=== PATIENT | male | born 1970 | race Caucasian/White ===

== ENCOUNTER 2018-01-01 05:50 | Emergency (ER) | payer SELFPAY ==
[~2018-01-01] VITALS: Ht 177.8 cm; Wt 86.2 kg
[~2018-01-01 05:50] MED LIST: ASPIRIN81 M1 PO; ATARAX,VISTARIL50 MG PO; HYDRODIURIL25 MG PO; KEFLEX500 MG PO; LEVAQUIN750 M1 PO; LISINOPRIL2.5 MG PO; LISINOPRIL20 MG PO; METOPROL; METOPROLOL SR25 MG PO; NAPROSYN500 MG PO; NORCO 325 MG-51 TAB PO; PANTOPRAZOLE SO40 MG PO; PREDNISONE10 MG PO; SIMVASTATIN20 MG PO; ZOFRAN ODT4 MG PO
[2018-01-01] MEDS ORDERED: Motrin,Rufen800 MG PO (07:35)
[2018-01-01] MEDS ORDERED: NORCO 5-325 TA1 EACH PO (07:35)
== END 2018-01-01 09:59 | disposition home or self-care (01) ==
LOC: ED 05:50
DX: S22.32XA Fracture of one rib, left side, initial encounter for closed fracture (principal); I10 Essential (primary) hypertension; J44.9 Chronic obstructive pulmonary disease, unspecified; E66.3 Overweight; F17.200 Nicotine dependence, unspecified, uncomplicated; Z68.31 Body mass index [BMI] 31.0-31.9, adult; Z79.899 Other long term (current) drug therapy; W20.8XXA Other cause of strike by thrown, projected or falling object, initial encounter; Y93.72 Activity, wrestling; Y92.89 Other specified places as the place of occurrence of the external cause; Y99.8 Other external cause status

== ENCOUNTER 2018-08-26 19:23 | Emergency (ER) | payer SELFPAY ==
[~2018-08-26] VITALS: Ht 177.8 cm; Wt 93.0 kg
[~2018-08-26 19:23] MED LIST changes: +CIPRO500 MG PO; +FLAGYL500 MG PO; +Motrin,Rufen800 MG PO; +NICODERM CQ1 EAC2 T; +NORCO 5-325 TA1 EACH PO; +ZESTORETIC 20-1 EACH PO
[2018-08-26 20:47] LABS: BILIRUBIN NEGATIVE (NEGATIVE); BLOOD TRACE-INTACT (NEGATIVE); CLARITY CLEAR (CLEAR); COLOR YELLOW (YELLOW); GLUCOSE NEGATIVE (NEGATIVE); KETONE NEGATIVE (NEGATIVE); LEUKO ESTERASE NEGATIVE (NEGATIVE); NITRITE NEGATIVE (NEGATIVE); SPECIFIC GRAVITY 1.025 (1.005-1.030); UROBILINOGEN 0.2 E.U./dl (0.2-1.0)
[2018-08-26 20:59] LABS: EPITHELIAL CELLS 0-2; WBC 0-2 wbc/hpf (0-5)
== END 2018-08-26 21:35 | disposition home or self-care (01) ==
LOC: ED 19:23
PROVIDERS: Physician Assistant
DX: S22.42XA Multiple fractures of ribs, left side, initial encounter for closed fracture (principal); R31.9 Hematuria, unspecified; R10.9 Unspecified abdominal pain; F17.200 Nicotine dependence, unspecified, uncomplicated; Z79.899 Other long term (current) drug therapy; W00.1XXA Fall from stairs and steps due to ice and snow, initial encounter; Y93.89 Activity, other specified; Y92.89 Other specified places as the place of occurrence of the external cause; Y99.8 Other external cause status

== ENCOUNTER 2018-10-22 18:53 | Emergency (ER) | payer BC ==
[~2018-10-22] VITALS: Wt 95.3 kg
--- NOTE | ~2018-10-22 | EKG ---
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
[2018-10-22 20:08] LABS: BASO % 0.4 % (0.0-1.0); EOS # 0.3 10*3/uL (0.0-0.4); EOS % 3.4 % (1.0-4.0); HEMATOCRIT 49.4 % (42.0-52.0); HEMOGLOBIN 17.8 g/dl (14.0-18.0); LYMPH # 1.9 10*3/uL (1.3-4.4); LYMPH % 23.9 % (27.0-41.0); MEAN CELL VOLUME 91.3 fl (80.0-94.0); MEAN CORPUSCULAR HGB 32.9 pg (27.0-31.0); MEAN PLATELET VOLUME 9.4 fl (9.6-12.3); MONO # 0.8 10*3/uL (0.1-1.0); MONO % 9.6 % (3.0-9.0); NEUT # 4.9 10*3/uL (2.3-7.9); NEUT % 62.4 % (47.0-73.0); PLATELET COUNT AUTOMATED 314 10*3/uL (130-400); RED BLOOD COUNT 5.41 10*6/uL (4.50-5.90); RED CELL DISTRI WIDTH 11.9 % (0-14.5); WHITE BLOOD COUNT 7.9 10*3/uL (4.8-10.8)
[2018-10-22 20:28] LABS: ACT PARTIAL THROMBO TIME 25.7 SECONDS (20.8-31.5); INTERNATIONAL NORM RATIO 0.9 (2.0-3.5)
[2018-10-22 20:31] LABS: ALBUMIN 4.1 gm/dl (3.1-4.5); ALKALINE PHOSPHATASE 98 U/L (45-117); BUN 15 mg/dl (7-24); CHLORIDE 99 mmol/L (98-107); SGOT/AST 48 IU/L (3-35); SGPT/ALT 70 U/L (12-78); SODIUM 134 mmol/L (136-145); TOTAL PROTEIN 9.3 gm/dL (6.4-8.2)
[2018-10-22 20:32] LABS: TROPONIN I < 0.015 ng/ml (<0.045)
[2018-10-22] MEDS ORDERED: PROAIR HFA8.5 GM INH (21:00)
== END 2018-10-22 21:06 | disposition home or self-care (01) ==
LOC: ED 18:53
PROVIDERS: Physician Assistant
DX: R00.0 Tachycardia, unspecified (principal); R94.6 Abnormal results of thyroid function studies; R05 Cough; R79.1 Abnormal coagulation profile; I10 Essential (primary) hypertension; F17.200 Nicotine dependence, unspecified, uncomplicated; Z79.899 Other long term (current) drug therapy

== ENCOUNTER 2019-01-20 07:40 | Inpatient (IN) | payer BC ==
[~2019-01-20] VITALS: Ht 177.8 cm; Wt 95.5 kg
[~2019-01-20 07:40] MED LIST changes: +PROAIR HFA8.5 GM INH
[2019-01-20 07:41] VITALS: BP 142/90
[2019-01-20] MEDS ORDERED: HYDROCHLOROTHIA25 M1 PO (07:44)
[2019-01-20] MEDS ORDERED: LOSARTAN POTASS50 M1 PO (07:44)
[2019-01-20 08:31] LABS: BASO % 0.2 % (0.0-1.0); EOS # 0.2 10*3/uL (0.0-0.4); EOS % 1.5 % (1.0-4.0); HEMATOCRIT 45.7 % (42.0-52.0); HEMOGLOBIN 16.4 g/dl (14.0-18.0); LYMPH # 1.2 10*3/uL (1.3-4.4); LYMPH % 11.8 % (27.0-41.0); MEAN CELL VOLUME 93.6 fl (80.0-94.0); MEAN CORPUSCULAR HGB 33.6 pg (27.0-31.0); MEAN CORPUSCULAR HGB CONC 35.9 g/dl (33.0-37.0); MEAN PLATELET VOLUME 9.2 fl (9.6-12.3); MONO # 0.8 10*3/uL (0.1-1.0); MONO % 8.3 % (3.0-9.0); NEUT # 7.7 10*3/uL (2.3-7.9); NEUT % 77.6 % (47.0-73.0); PLATELET COUNT AUTOMATED 276 10*3/uL (130-400); RED BLOOD COUNT 4.88 10*6/uL (4.50-5.90); RED CELL DISTRI WIDTH 12.1 % (0-14.5); WHITE BLOOD COUNT 9.9 10*3/uL (4.8-10.8)
[2019-01-20 08:52] LABS: ALBUMIN 3.5 gm/dl (3.1-4.5); ALKALINE PHOSPHATASE 102 U/L (45-117); BUN 9 mg/dl (7-24); CHLORIDE 95 mmol/L (98-107); CREATININE 0.71 mg/dL (0.70-1.30); POTASSIUM 4.3 mmol/L (3.5-5.1); SGOT/AST 26 IU/L (3-35); SGPT/ALT 44 U/L (12-78); SODIUM 130 mmol/L (136-145); TOTAL PROTEIN 8.2 gm/dL (6.4-8.2)
[2019-01-20 09:26] LABS: BILIRUBIN NEGATIVE (NEGATIVE); BLOOD NEGATIVE (NEGATIVE); CLARITY CLEAR (CLEAR); COLOR YELLOW (YELLOW); GLUCOSE NEGATIVE (NEGATIVE); KETONE NEGATIVE (NEGATIVE); LEUKO ESTERASE NEGATIVE (NEGATIVE); NITRITE NEGATIVE (NEGATIVE); SPECIFIC GRAVITY <= 1.005 (1.005-1.030); UROBILINOGEN 0.2 E.U./dl (0.2-1.0)
[2019-01-20 09:37] LABS: RBC 0-2 rbc/hpf (0-2); WBC 0-2 wbc/hpf (0-5)
[2019-01-20 10:00] VITALS: BP 144/78
[2019-01-20 11:50] LABS: INTERNATIONAL NORM RATIO 0.9 (2.0-3.5)
[2019-01-20 14:00] VITALS: BP 121/91
[2019-01-20 20:00] VITALS: BP 150/94
[2019-01-21] VITALS: BP 130/89
[2019-01-21 06:49] LABS: BASO % 0.4 % (0.0-1.0); EOS # 0.1 10*3/uL (0.0-0.4); EOS % 1.8 % (1.0-4.0); HEMATOCRIT 44.5 % (42.0-52.0); HEMOGLOBIN 15.4 g/dl (14.0-18.0); LYMPH % 14.8 % (27.0-41.0); MEAN CELL VOLUME 97.2 fl (80.0-94.0); MEAN CORPUSCULAR HGB 33.6 pg (27.0-31.0); MEAN CORPUSCULAR HGB CONC 34.6 g/dl (33.0-37.0); MEAN PLATELET VOLUME 9.4 fl (9.6-12.3); MONO # 0.7 10*3/uL (0.1-1.0); MONO % 9.5 % (3.0-9.0); NEUT # 5.1 10*3/uL (2.3-7.9); NEUT % 72.9 % (47.0-73.0); PLATELET COUNT AUTOMATED 267 10*3/uL (130-400); RED BLOOD COUNT 4.58 10*6/uL (4.50-5.90); RED CELL DISTRI WIDTH 12.4 % (0-14.5)
[2019-01-21 07:08] LABS: ALBUMIN 3.4 gm/dl (3.1-4.5); ALKALINE PHOSPHATASE 93 U/L (45-117); CHLORIDE 99 mmol/L (98-107); POTASSIUM 4.2 mmol/L (3.5-5.1); SODIUM 133 mmol/L (136-145)
[2019-01-21 07:14] LABS: BUN 7 mg/dl (7-24); CHOLESTEROL 182 mg/dL (<200); FREE T4 0.94 ng/dl (0.76-1.46); HDL CHOLESTEROL 50 mg/dl (40-60); LDL CHOLESTEROL 103 mg/dL (9-159); SGOT/AST 23 IU/L (3-35); SGPT/ALT 36 U/L (12-78); TOTAL PROTEIN 7.7 gm/dL (6.4-8.2); TRIGLYCERIDES 147 mg/dl (<150); VLDL CHOLESTEROL 29 mg/dL (6-40)
[2019-01-21 08:00] VITALS: BP 132/78; BP 138/97
[2019-01-21 08:48] LABS: VITAMIN D, 25-HYDROXY 26.4 ng/mL (30-100)
[2019-01-21 12:00] VITALS: BP 136/86
[2019-01-21 16:00] VITALS: BP 137/85
[2019-01-21 20:00] VITALS: BP 133/72
[2019-01-22] VITALS: BP 129/89
[2019-01-22 07:47] VITALS: BP 129/83
[2019-01-22 07:49] VITALS: BP 115/80; BP 116/80
[2019-01-22 12:00] VITALS: BP 122/76
[2019-01-22] MEDS ORDERED: CIPROFLOXACIN750 MG PO (13:16)
[2019-01-22] MEDS ORDERED: FLAGYL500 MG PO (13:16)
== END 2019-01-22 13:30 | disposition home or self-care (01) | DRG 392 ==
LOC: ED 07:40 → 5E 11:21 → EDHOLD 11:21 → 5E 13:10
PROVIDERS: Internal Medicine; Registered Nurse; ADMIT Internal Medicine
DX: K57.32 Diverticulitis of large intestine without perforation or abscess without bleeding (principal); E44.0 Moderate protein-calorie malnutrition; E87.1 Hypo-osmolality and hyponatremia; I10 Essential (primary) hypertension; F17.210 Nicotine dependence, cigarettes, uncomplicated; F10.10 Alcohol abuse, uncomplicated; Z83.3 Family history of diabetes mellitus; Z82.49 Family history of ischemic heart disease and other diseases of the circulatory system; Z79.899 Other long term (current) drug therapy; Z68.30 Body mass index [BMI] 30.0-30.9, adult

== ENCOUNTER 2020-03-17 12:55 | Emergency (ER) | payer SELFPAY ==
[~2020-03-17] VITALS: Wt 95.3 kg
[~2020-03-17 12:55] MED LIST changes: +CIPROFLOXACIN750 MG PO; +HYDROCHLOROTHIA25 M1 PO; +LOSARTAN POTASS50 M1 PO
[2020-03-17 13:20] LABS: BASO % 0.4 % (0.0-1.0); EOS # 0.3 10*3/uL (0.0-0.4); EOS % 2.6 % (1.0-4.0); HEMATOCRIT 46.3 % (42.0-52.0); LYMPH % 31.5 % (27.0-41.0); MEAN CELL VOLUME 97.9 fl (80.0-94.0); MEAN CORPUSCULAR HGB 34.5 pg (27.0-31.0); MEAN CORPUSCULAR HGB CONC 35.2 g/dl (33.0-37.0); MONO % 10.1 % (3.0-9.0); NEUT # 5.2 10*3/uL (2.3-7.9); NEUT % 55.1 % (47.0-73.0); PLATELET COUNT AUTOMATED 261 10*3/uL (130-400); RED BLOOD COUNT 4.73 10*6/uL (4.50-5.90); RED CELL DISTRI WIDTH 11.7 % (0-14.5); WHITE BLOOD COUNT 9.5 10*3/uL (4.8-10.8)
[2020-03-17 13:30] LABS: ACT PARTIAL THROMBO TIME 29.3 SECONDS (20.0-32.1); INTERNATIONAL NORM RATIO 0.9 (2.0-3.5)
[2020-03-17 13:41] LABS: ALBUMIN 3.7 gm/dl (3.1-4.5); ALKALINE PHOSPHATASE 135 U/L (45-117); BUN 8 mg/dl (7-24); CHLORIDE 92 mmol/L (98-107); CREATININE 0.74 mg/dL (0.70-1.30); POTASSIUM 3.9 mmol/L (3.5-5.1); SGOT/AST 134 IU/L (3-35); SGPT/ALT 125 U/L (12-78); SODIUM 124 mmol/L (136-145); TOTAL PROTEIN 8.6 gm/dL (6.4-8.2)
[2020-03-17 13:42] LABS: TROPONIN I < 0.015 ng/ml (<0.045)
[2020-03-17 14:23] VITALS: BP 155/95
--- NOTE | 2020-03-17 15:17 | NUR ---
PARENTS HERE TO TAKE PT AMA. EXPLAINED TO THEM HE CANNOT SIGN HIMSELF OUT BECAUSE HE IS CURRENTLY INTOXICATED.
== END 2020-03-17 14:58 | disposition left against medical advice (07) ==
LOC: ED 12:55 → EDHOLD 14:23 → ED 14:23
PROVIDERS: Emergency Medicine
DX: S01.01XA Laceration without foreign body of scalp, initial encounter (principal); K70.10 Alcoholic hepatitis without ascites; F10.129 Alcohol abuse with intoxication, unspecified; R55 Syncope and collapse; E87.1 Hypo-osmolality and hyponatremia; F17.210 Nicotine dependence, cigarettes, uncomplicated; Z79.899 Other long term (current) drug therapy; Y90.9 Presence of alcohol in blood, level not specified; W18.39XA Other fall on same level, initial encounter; Y93.89 Activity, other specified; Y92.89 Other specified places as the place of occurrence of the external cause; Y99.8 Other external cause status

== ENCOUNTER 2020-10-13 18:56 | Emergency (ER) | payer SELFPAY ==
[~2020-10-13] VITALS: Wt 95.7 kg
[2020-10-13 19:41] LABS: BASO % 0.7 % (0.0-1.0); EOS # 0.3 10*3/uL (0.0-0.4); EOS % 5.7 % (1.0-4.0); HEMATOCRIT 41.7 % (42.0-52.0); LYMPH # 1.8 10*3/uL (1.3-4.4); LYMPH % 31.5 % (27.0-41.0); MEAN CELL VOLUME 95.4 fl (80.0-94.0); MEAN CORPUSCULAR HGB 34.1 pg (27.0-31.0); MEAN CORPUSCULAR HGB CONC 35.7 g/dl (33.0-37.0); MEAN PLATELET VOLUME 9.1 fl (9.6-12.3); MONO # 0.5 10*3/uL (0.1-1.0); MONO % 9.1 % (3.0-9.0); NEUT # 3.1 10*3/uL (2.3-7.9); NEUT % 52.8 % (47.0-73.0); PLATELET COUNT AUTOMATED 207 10*3/uL (130-400); RED BLOOD COUNT 4.37 10*6/uL (4.50-5.90); RED CELL DISTRI WIDTH 11.9 % (0-14.5); WHITE BLOOD COUNT 5.8 10*3/uL (4.8-10.8)
[2020-10-13 19:57] LABS: ALBUMIN 3.3 gm/dl (3.1-4.5); ALKALINE PHOSPHATASE 129 U/L (45-117); BUN 4 mg/dl (7-24); CHLORIDE 94 mmol/L (98-107); CREATININE 0.71 mg/dL (0.70-1.30); POTASSIUM 3.4 mmol/L (3.5-5.1); SGOT/AST 154 IU/L (3-35); SGPT/ALT 124 U/L (12-78); SODIUM 126 mmol/L (136-145); TOTAL PROTEIN 8.2 gm/dL (6.4-8.2)
[2020-10-13 19:58] LABS: TROPONIN I < 0.015 ng/ml (<0.045)
== END 2020-10-13 21:37 | disposition short-term general hospital (02) ==
LOC: ED 18:56
PROVIDERS: Emergency Medicine
DX: S06.5X9A Traumatic subdural hemorrhage with loss of consciousness of unspecified duration, initial encounter (principal); I10 Essential (primary) hypertension; F17.200 Nicotine dependence, unspecified, uncomplicated; Z79.899 Other long term (current) drug therapy; X58.XXXA Exposure to other specified factors, initial encounter; Y93.89 Activity, other specified; Y92.89 Other specified places as the place of occurrence of the external cause; Y99.8 Other external cause status

== ENCOUNTER 2023-02-04 07:43 | Emergency (ER) | payer SELFPAY ==
[~2023-02-04] VITALS: Ht 177.8 cm; Wt 83.9 kg
[2023-02-04 08:15] LABS: BASO % 0.3 % (0.0-1.0); EOS # 0.1 10*3/uL (0.0-0.4); EOS % 0.6 % (1.0-4.0); HEMATOCRIT 43.4 % (42.0-52.0); LYMPH # 0.8 10*3/uL (1.3-4.4); LYMPH % 10.7 % (27.0-41.0); MEAN CELL VOLUME 94.6 fl (80.0-94.0); MEAN CORPUSCULAR HGB 34.4 pg (27.0-31.0); MEAN CORPUSCULAR HGB CONC 36.4 g/dl (33.0-37.0); MEAN PLATELET VOLUME 9.3 fl (9.6-12.3); MONO # 0.7 10*3/uL (0.1-1.0); MONO % 9.2 % (3.0-9.0); NEUT # 6.1 10*3/uL (2.3-7.9); NEUT % 78.9 % (47.0-73.0); PLATELET COUNT AUTOMATED 229 10*3/uL (130-400); RED BLOOD COUNT 4.59 10*6/uL (4.50-5.90); RED CELL DISTRI WIDTH 12.2 % (0-14.5); WHITE BLOOD COUNT 7.7 10*3/uL (4.8-10.8)
[2023-02-04 08:32] LABS: ACT PARTIAL THROMBO TIME 29.8 SECONDS (20.0-32.1)
[2023-02-04 09:15] LABS: ALKALINE PHOSPHATASE 396 U/L (46-116); BUN 6 mg/dl (9-23); CHLORIDE 97 mmol/L (98-107); LIPASE 42 U/L (12-53); SGPT/ALT 112 U/L (10-49); TOTAL PROTEIN 8.4 gm/dL (6.0-8.0)
[2023-02-04] MEDS ORDERED: AMOX-CLAV 875-1 EACH PO (10:47)
== END 2023-02-04 11:03 | disposition home or self-care (01) ==
LOC: ED 07:43
PROVIDERS: Emergency Medicine
DX: K57.92 Diverticulitis of intestine, part unspecified, without perforation or abscess without bleeding (principal); K76.9 Liver disease, unspecified; F17.200 Nicotine dependence, unspecified, uncomplicated; Z98.890 Other specified postprocedural states

== ENCOUNTER 2023-06-03 16:58 | Emergency (ER) | payer MEDICAID ==
[~2023-06-03] VITALS: Ht 177.8 cm; Wt 83.9 kg
[~2023-06-03 16:58] MED LIST changes: +AMOX-CLAV 875-1 EACH PO
[2023-06-03 17:39] LABS: BASO % 0.2 % (0.0-1.0); EOS # 0.3 10*3/uL (0.0-0.4); EOS % 2.8 % (1.0-4.0); HEMATOCRIT 36.4 % (42.0-52.0); LYMPH # 1.5 10*3/uL (1.3-4.4); LYMPH % 16.7 % (27.0-41.0); MEAN CELL VOLUME 100.8 fl (80.0-94.0); MEAN CORPUSCULAR HGB 36.6 pg (27.0-31.0); MEAN CORPUSCULAR HGB CONC 36.3 g/dl (33.0-37.0); MEAN PLATELET VOLUME 9.2 fl (9.6-12.3); MONO # 0.9 10*3/uL (0.1-1.0); NEUT # 6.2 10*3/uL (2.3-7.9); NEUT % 69.8 % (47.0-73.0); PLATELET COUNT AUTOMATED 202 10*3/uL (130-400); RED BLOOD COUNT 3.61 10*6/uL (4.50-5.90); RED CELL DISTRI WIDTH 14.6 % (0-14.5); WHITE BLOOD COUNT 8.9 10*3/uL (4.8-10.8)
[2023-06-03 17:50] LABS: ACT PARTIAL THROMBO TIME 31.6 SECONDS (20.0-32.1)
[2023-06-03 18:00] LABS: ALKALINE PHOSPHATASE 160 U/L (46-116); BUN 9 mg/dl (9-23); CHLORIDE 99 mmol/L (98-107); LIPASE 48 U/L (12-53); POTASSIUM 4.1 mmol/L (3.4-5.1); SGPT/ALT 42 U/L (5-49); TOTAL PROTEIN 8.3 gm/dL (6.0-8.0)
[2023-06-03 18:25] LABS: BILIRUBIN Negative (Negative); BLOOD Negative (Negative); CLARITY Clear (Clear); COLOR Yellow (Yellow); GLUCOSE Negative (Negative); KETONE Negative (Negative); LEUKO ESTERASE Negative (Negative); NITRITE Negative (Negative); SPECIFIC GRAVITY <= 1.005 (1.001-1.030)
[2023-06-03 18:34] LABS: BACTERIA TRACE; EPITHELIAL CELLS 0-2; RBC 0-2 rbc/hpf (0-2); WBC 0-2 wbc/hpf (0-5)
[2023-06-03] MEDS ORDERED: THIAMINE HCL100 MG PO (18:45)
[2023-06-04 06:08] LABS: HBSAG Negative (Negative); HEP B CORE AB, IGM Negative (Negative); HEPATITIS C ANTIBODY Non Reactive (Non Reactive)
== END 2023-06-03 18:58 | disposition home or self-care (01) ==
LOC: ED 16:58
PROVIDERS: Family Medicine
DX: R17 Unspecified jaundice (principal); F10.20 Alcohol dependence, uncomplicated; I10 Essential (primary) hypertension; Z98.890 Other specified postprocedural states; F17.200 Nicotine dependence, unspecified, uncomplicated; Y90.0 Blood alcohol level of less than 20 mg/100 ml

== ENCOUNTER → 2023-06-19 | Outpatient (CLI) | payer MEDICAID ==
[~2023-06-19] MED LIST changes: +THIAMINE HCL100 MG PO
== END | disposition home or self-care (01) ==
LOC: RESCLI 01:15
PROVIDERS: ATTEND Internal Medicine
DX: K70.9 Alcoholic liver disease, unspecified (principal); K57.90 Diverticulosis of intestine, part unspecified, without perforation or abscess without bleeding; E03.9 Hypothyroidism, unspecified; R73.9 Hyperglycemia, unspecified; D53.9 Nutritional anemia, unspecified; F17.200 Nicotine dependence, unspecified, uncomplicated; I10 Essential (primary) hypertension; F17.210 Nicotine dependence, cigarettes, uncomplicated; Z98.890 Other specified postprocedural states; Z79.899 Other long term (current) drug therapy

== ENCOUNTER → 2023-06-22 | Outpatient (CLI) | payer MEDICAID ==
[2023-06-22 07:39] LABS: BASO % 0.5 % (0.0-1.0); EOS # 0.3 10*3/uL (0.0-0.4); EOS % 6.2 % (1.0-4.0); HEMATOCRIT 46.1 % (42.0-52.0); LYMPH # 1.3 10*3/uL (1.3-4.4); LYMPH % 29.5 % (27.0-41.0); MEAN CELL VOLUME 101.5 fl (80.0-94.0); MEAN CORPUSCULAR HGB 34.8 pg (27.0-31.0); MEAN CORPUSCULAR HGB CONC 34.3 g/dl (33.0-37.0); MONO # 0.5 10*3/uL (0.1-1.0); MONO % 10.3 % (3.0-9.0); NEUT # 2.3 10*3/uL (2.3-7.9); PLATELET COUNT AUTOMATED 247 10*3/uL (130-400); RED BLOOD COUNT 4.54 10*6/uL (4.50-5.90); RED CELL DISTRI WIDTH 12.9 % (0-14.5); WHITE BLOOD COUNT 4.4 10*3/uL (4.8-10.8)
[2023-06-22 08:02] LABS: ALKALINE PHOSPHATASE 121 U/L (46-116); BUN 5 mg/dl (9-23); CHLORIDE 104 mmol/L (98-107); CHOLESTEROL 194 mg/dL (<200); FREE T4 0.96 ng/dl (0.89-1.76); LDL CHOLESTEROL 124 mg/dL (9-159); POTASSIUM 4.5 mmol/L (3.4-5.1); SGPT/ALT 32 U/L (5-49); TOTAL PROTEIN 8.4 gm/dL (6.0-8.0); TRIGLYCERIDES 127 mg/dl (<150)
[2023-06-23 06:34] LABS: HEMOGOLBIN A1C 4.4 % (4.8-5.6)
== END | disposition home or self-care (01) ==
LOC: LAB 07:03
PROVIDERS: Internal Medicine; ATTEND Family Medicine
DX: E03.9 Hypothyroidism, unspecified (principal); R73.9 Hyperglycemia, unspecified; D53.9 Nutritional anemia, unspecified; I10 Essential (primary) hypertension; K70.9 Alcoholic liver disease, unspecified

== ENCOUNTER → 2023-07-08 | Outpatient (CLI) | payer MEDICAID | END | disposition home or self-care (01) | LOC: RESCLI 01:44 | PROVIDERS: ATTEND Internal Medicine | DX: I10 Essential (primary) hypertension (principal); K21.9 Gastro-esophageal reflux disease without esophagitis; D53.9 Nutritional anemia, unspecified; F17.210 Nicotine dependence, cigarettes, uncomplicated; Z72.89 Other problems related to lifestyle; Z98.890 Other specified postprocedural states; Z79.899 Other long term (current) drug therapy ==

== ENCOUNTER → 2023-08-20 | Outpatient (CLI) | payer MEDICAID | END | disposition home or self-care (01) | LOC: CT 08-16 09:00 → MRI 08-16 11:00 | PROVIDERS: ATTEND Internal Medicine | DX: K74.60 Unspecified cirrhosis of liver (principal); J43.9 Emphysema, unspecified; N28.1 Cyst of kidney, acquired; K76.6 Portal hypertension; I10 Essential (primary) hypertension; R16.1 Splenomegaly, not elsewhere classified; F17.200 Nicotine dependence, unspecified, uncomplicated ==

== ENCOUNTER → 2023-11-21 | Outpatient (CLI) | payer MEDICAID | END | disposition home or self-care (01) | LOC: RESCLI 02:11 | PROVIDERS: ATTEND Internal Medicine | DX: I10 Essential (primary) hypertension (principal); F17.200 Nicotine dependence, unspecified, uncomplicated; N52.9 Male erectile dysfunction, unspecified; K21.9 Gastro-esophageal reflux disease without esophagitis; F17.210 Nicotine dependence, cigarettes, uncomplicated; Z98.890 Other specified postprocedural states; Z79.899 Other long term (current) drug therapy ==

== ENCOUNTER 2024-02-17 08:18 | Emergency (ER) | payer OTHER ==
[~2024-02-17] VITALS: Ht 177.8 cm; Wt 86.2 kg
[2024-02-17] MEDS ORDERED: Ketorolac Tromethamine 15 MG/ML VIAL IV ONE (08:40)
[2024-02-17] MEDS ORDERED: Thiamine 200 MG/2 ML VIAL IV ONE (08:40)
[2024-02-17] MEDS ORDERED: LIDOCAINE 1 EA PATCH T ONE (08:40)
[2024-02-17 08:59] LABS: BASO % 0.8 % (0.0-1.0); EOS # 0.2 10*3/uL (0.0-0.4); EOS % 5.7 % (1.0-4.0); HEMATOCRIT 46.7 % (42.0-52.0); LYMPH # 1.4 10*3/uL (1.3-4.4); LYMPH % 39.1 % (27.0-41.0); MEAN CELL VOLUME 92.7 fl (80.0-94.0); MEAN CORPUSCULAR HGB 33.3 pg (27.0-31.0); MEAN PLATELET VOLUME 9.3 fl (9.6-12.3); MONO # 0.3 10*3/uL (0.1-1.0); MONO % 8.7 % (3.0-9.0); NEUT # 1.7 10*3/uL (2.3-7.9); NEUT % 45.4 % (47.0-73.0); PLATELET COUNT AUTOMATED 193 10*3/uL (130-400); RED BLOOD COUNT 5.04 10*6/uL (4.50-5.90); RED CELL DISTRI WIDTH 11.9 % (0-14.5); WHITE BLOOD COUNT 3.7 10*3/uL (4.8-10.8)
[2024-02-17 09:27] LABS: ALKALINE PHOSPHATASE 177 U/L (46-116); CHLORIDE 97 mmol/L (98-107); LIPASE 54 U/L (12-53); SGPT/ALT 216 U/L (5-49); TOTAL PROTEIN 8.4 gm/dL (6.0-8.0)
[2024-02-17 09:37] LABS: BUN < 5 mg/dl (9-23)
[2024-02-17] MEDS ORDERED: ASPERCREME LID1 EACH T (10:00)
[2024-02-17] MEDS ORDERED: Thiamine 100 MG TAB PO ONE (10:15)
== END 2024-02-17 12:38 | disposition home or self-care (01) ==
LOC: ED 08:18
PROVIDERS: Emergency Medicine
DX: M47.816 Spondylosis without myelopathy or radiculopathy, lumbar region (principal); R74.01 Elevation of levels of liver transaminase levels; K70.10 Alcoholic hepatitis without ascites; E87.1 Hypo-osmolality and hyponatremia; D72.819 Decreased white blood cell count, unspecified; I10 Essential (primary) hypertension; M54.50 Low back pain, unspecified; F10.129 Alcohol abuse with intoxication, unspecified; F17.200 Nicotine dependence, unspecified, uncomplicated; Y90.8 Blood alcohol level of 240 mg/100 ml or more; Z98.890 Other specified postprocedural states

== ENCOUNTER → 2024-11-19 | Outpatient (CLI) | payer OTHER ==
[~2024-11-19] MED LIST changes: +ASPERCREME LID1 EACH T
== END ==
LOC: RESCLI 07:59
PROVIDERS: ATTEND Student in an Organized Health Care Education/Training Program
DX: K70.30 Alcoholic cirrhosis of liver without ascites (principal); Z00.00 Encounter for general adult medical examination without abnormal findings; K21.9 Gastro-esophageal reflux disease without esophagitis; L30.9 Dermatitis, unspecified; N52.9 Male erectile dysfunction, unspecified; I10 Essential (primary) hypertension

== ENCOUNTER → 2025-01-07 | Outpatient (CLI) | payer OTHER | END | disposition home or self-care (01) | LOC: RESCLI 01:33 | PROVIDERS: ATTEND Family Medicine | DX: F10.120 Alcohol abuse with intoxication, uncomplicated (principal); R06.2 Wheezing; I10 Essential (primary) hypertension; K21.9 Gastro-esophageal reflux disease without esophagitis; N52.9 Male erectile dysfunction, unspecified; K70.30 Alcoholic cirrhosis of liver without ascites ==